=== PATIENT | female | born 1950 | race Caucasian/White ===

== ENCOUNTER 2017-05-01 05:22 | Inpatient (IN) | payer OTHER ==
[2017-04-16 13:14] LABS: HEMATOCRIT 42.4 % (37.0-47.0); HEMOGLOBIN 14.2 gm/dL (12.0-15.0); MCH 30.7 pg (26.0-34.0); MCHC 33.5 g/dL (28.0-37.0); MCV 91.7 fL (80.0-100.0); RBC 4.63 mil/uL (4.20-5.00); URINE BILIRUBIN NEGATIVE (Negative); URINE BLOOD TRACE (Negative); URINE COLOR YELLOW; URINE GLUCOSE-RANDOM* NEGATIVE (Negative); URINE KETONES NEGATIVE (Negative); URINE LEUKOCYTES-REFLEX NEGATIVE (Negative); URINE PROTEIN (DIPSTICK) TRACE (Negative); URINE SPECIFIC GRAVITY 1.025 (1.003-1.035); URINE UROBILINOGEN 0.2 E.U./dl (0.2-1.0); WBC 4.8 thou/uL (4.0-11.0)
[2017-04-16 13:27] LABS: PROTIME 10.6 Seconds (9.3-11.4)
[2017-04-16 13:29] LABS: ALBUMIN 4.2 g/dL (3.4-5.0); CALCIUM 9.4 mg/dL (8.5-10.1); CREATININE 0.8 mg/dL (0.6-1.0); POTASSIUM 4.3 mmol/L (3.5-5.1)
[2017-04-17 03:11] LABS: GLYCOHEMOGLOBIN (HGB A1C) 5.8 % (4.8-5.6)
[2017-05-01] VITALS (10 sets, daily range): BP systolic 108–136; BP diastolic 59–84
[~2017-05-01] VITALS: Ht 170.2 cm; Wt 121.1 kg
--- NOTE | ~2017-05-01 | O ---
[facility] [place] [address] OPERATIVE REPORT Name: LITTLE AGEE Alexander Room #: 150-8 ADM IN M.R.#: [id number] Admission: 05/01/17 Attend Phys: Ministerio Eckert MD Discharge: Date of : 52 Report #: [id number] THIS REPORT FOR: //name// CC: Cinthya Eckert DATE OF SERVICE: 05/01/2017 PREOPERATIVE DIAGNOSES: 1. Left hip degenerative joint disease, severe. 2. Morbid obesity, body mass index is 41.81. POSTOPERATIVE DIAGNOSES: 1. Left hip degenerative joint disease, severe. 2. Morbid obesity, body mass index is 41.81. PROCEDURE: Left total hip arthroplasty. SURGEON: Ministerio Eckert MD. FOOD VENDOR: CHIRAG Solis. ANESTHETIC: General. INDICATIONS: See [facility] IMPLANTS UTILIZED: We used a Byron hip system. We used a size 9 hip stem, 132 degree neck angle. We used a -2.5 Biolox C taper head. We used a 50 mm Tritanium hemispherical solid back shell with a 10 degree polyethylene insert Trident X3. DESCRIPTION OF PROCEDURE: After adequate general anesthesia had been obtained, the patient was placed in the lateral decubitus position. The left hip and lower extremity was prepped and draped in the usual meticulous sterile fashion. Posterolateral incision was made in the hip, subQ divided sharply. Hemostasis obtained with electrocautery. IT band gluteal fascia was divided, this later retracted with a Charnley retractor. Hip was internally rotated and the external rotators were detached at their insertion, tagged and retracted posteriorly. Capsular incision was made. It likewise was tagged and retracted posteriorly. The hip was then dislocated. Soft tissue removed from the base of the neck. The starter awl was placed at the base of neck and advanced to canal. Canal was sequentially reamed to a size 9. Neck osteotomy was performed. Attention directed to the acetabulum, was circumferentially exposed. Labrum was resected and sequentially reamed to a size 48. We trialed a 48 and got a good [facility] [address] [place] [address] OPERATIVE REPORT Name: LITTLE AGEE Room #: 150-8 ADM IN M.R.#: [id number] Admission: 05/01/17 Attend Phys: Ministerio Eckert MD Discharge: Date of : 52 Report #: [id number] press fit and so we reamed to a 49, irrigated copiously and then placed the shell in the appropriate orientation. The cap screw was placed. The liner was placed with the elevated portion posteroinferiorly. Attention was redirected to the femur and sequentially broached to a size 9. We had excellent torsional stability. Trial reduction demonstrated -2.5 neck length gave us the best equalization of leg lengths and stability parameters. We then removed the trial components, irrigated copiously and placed the permanent stem into position. The head was then impacted in position, the hip was then reduced. We then repaired the capsule and external rotators to the trochanter by placing a drill hole in the trochanter and placing sutures through the drill hole and tying them over a bone bridge. We placed drains deep and superficial. The IT band gluteal fascia was closed with a combination of interrupted eizwyd-ii-eqvmq #1 Vicryl as well as running #1 Tevdek. SubQ closed with 2-0 Monocryl in multiple layers due to the patient's size. Skin closed with flores. Sterile compressive dressing was applied. By: [id number] Ministerio Eckert MD /alfredo
--- NOTE | ~2017-05-01 | EKG ---
[address] [address] ELECTROCARDIOGRAM REPORT Name: LITTLE AGEE Room #: PRE IN [facility]#: [id number] Admission: Attend Phys: Ministerio Eckert MD Discharge: Date of : 52 Report #: [id number] THIS REPORT FOR: //name// [facility] Test Date: 2017-04-16 Test Time: 12:47:52 Pat Name: LITTLE AGEE Department: Room: Gender: F Tours Captain: Elaine MANN : 1950 Requested By: Ministerio Eckert Order Number: [id number] MD: Jagdeep York Measurements Intervals [place] Rate: 87 P: 31 [place]: 187 QRS: -6 QRSD: 89 T: 2 QT: 358 QTc: 431 Interpretive Statements Sinus rhythm Compared to ECG 11/17/2013 10:34:30 Myocardial infarct finding no longer present Electronically Signed On 04-16-2017 14:16:14 CDT by Jagdeep York [email or web address] <ELECTRONICALLY SIGNED> By: Jagdeep York MD 04/16/17 1416 D: 10/1246 46 Jagdeep York MD /MERYL
[~2017-05-01 05:22] MED LIST: ACCUNEB SO1.25 MG/1; ASACOL 400 MG400 M1 PO; ASACOL HD800 MG PO; ASPIRIN EC81 M1 PO; B COMPLEX-VITA1 EACH PO; CALCIUM 600 +1 EAC1 PO; CELEBREX 200 M200 M1 PO; CELEBREX 200 M200 MG PO; CENTRUM SILVER1 EAC4 PO; CEPHALEXIN 250250 M1 PO; CO Q-10100 MG PO; COLACE100 MG PO; ENDOCET 10-3251 EACH; EVISTA PO; FISH OIL 1,0001 EAC5 PO; FISH OIL WITH1 EACH PO; IBUPROFEN100 MG PO; KEFLEX250 M1 PO; LIALDA1.2 GM PO; LIPITOR20 MG PO; LISINOPRIL10 MG PO; MULTI VITAMIN1 EACH PO; NORCO 10-325 T1 EACH PO; NORVASC5 MG PO; PERCOCET 10-321 EACH PO; PERCOCET 5-3251 EACH PO; PRILOSEC 20 MG20 MG PO; SUPER B COMPLE150 MG PO; THERA-M CAPLET1 EACH PO; TYLENOL325 MG PO; VITAMIN B COMP1 EACH PO; VITAMIN D-32000 UNIT PO; XARELTO10 MG PO; ZYRTEC10 MG PO
[2017-05-02] VITALS: BP 124/65
[2017-05-02 02:56] VITALS: BP 138/61
[2017-05-02 06:25] LABS: HEMATOCRIT 38.7 % (37.0-47.0); HEMOGLOBIN 12.6 gm/dL (12.0-15.0); MCH 30.1 pg (26.0-34.0); MCHC 32.5 g/dL (28.0-37.0); MCV 92.7 fL (80.0-100.0); RBC 4.18 mil/uL (4.20-5.00); RDW 12.9 % (10.5-14.5); WBC 8.9 thou/uL (4.0-11.0)
[2017-05-02 08:00] VITALS: BP 11/57
[2017-05-02 20:01] VITALS: BP 118/80
[2017-05-03 03:15] VITALS: BP 100/53; BP 107/59
[2017-05-03 03:34] LABS: HEMATOCRIT 35.9 % (37.0-47.0); HEMOGLOBIN 11.7 gm/dL (12.0-15.0); MCH 30.2 pg (26.0-34.0); MCHC 32.5 g/dL (28.0-37.0); RBC 3.86 mil/uL (4.20-5.00); RDW 13.2 % (10.5-14.5); WBC 8.1 thou/uL (4.0-11.0)
[2017-05-03] MEDS ORDERED: XARELTO10 MG PO (06:58)
[2017-05-03 08:31] VITALS: BP 102/59
[2017-05-03 19:18] VITALS: BP 118/69
[2017-05-04 03:58] LABS: HEMATOCRIT 34.8 % (37.0-47.0); HEMOGLOBIN 11.5 gm/dL (12.0-15.0); MCH 30.5 pg (26.0-34.0); MCV 92.3 fL (80.0-100.0); RBC 3.77 mil/uL (4.20-5.00); RDW 13.3 % (10.5-14.5); WBC 6.1 thou/uL (4.0-11.0)
[2017-05-04 04:11] VITALS: BP 113/72
[2017-05-04 08:26] VITALS: BP 105/66
[2017-05-04 10:10] VITALS: BP 105/66
== END 2017-05-04 10:35 | disposition home health service (06) | DRG 470 ==
LOC: 4N 05:22 → TBA 05:22 → PRE 05:46 → 4N 16:07 → ENTRNSPT 05-04 10:29 → EDTRNSPTSTS 05-04 10:32 → 4N 05-04 10:35
PROVIDERS: Orthopaedic Surgery
PROC: 0SRB04A Replacement of Left Hip Joint with Ceramic on Polyethylene Synthetic Substitute, Uncemented, Open Approach (ICD-10-PCS; principal; 2017-05-01)
DX: M16.12 Unilateral primary osteoarthritis, left hip (principal); Z68.41 Body mass index [BMI] 40.0-44.9, adult; E66.01 Morbid (severe) obesity due to excess calories; I10 Essential (primary) hypertension; Z96.653 Presence of artificial knee joint, bilateral; M81.0 Age-related osteoporosis without current pathological fracture; K21.9 Gastro-esophageal reflux disease without esophagitis; Z96.611 Presence of right artificial shoulder joint; E78.00 Pure hypercholesterolemia, unspecified; Z96.641 Presence of right artificial hip joint; E11.9 Type 2 diabetes mellitus without complications; Z87.81 Personal history of (healed) traumatic fracture; Z88.8 Allergy status to other drugs, medicaments and biological substances
CPT/HCPCS: 10790; 50010; 50101; 50382; 50414; 50455; 50855; 51412; 51771; 53000; 55388; 56521; 56525; 56527; 56530; 57095; 62110; 62900; 70005